=== PATIENT | male | born 1965 | race Caucasian/White ===

== ENCOUNTER 2020-07-12 20:08 | Emergency (ER) | payer BC, OTHER ==
[~2020-07-12] VITALS: Ht 185.5 cm; Wt 99.8 kg
[~2020-07-12 20:08] MED LIST: ALLP300T; ATOR80TA; CND32T; CPR500T PO; HCT25T; HYDR1TAB PO; METR500T PO; NF-ESOM40C
--- NOTE | 2020-07-12 21:08 | ED General ---
General Stated Complaint: RIGHT FLANK PAIN Source of Information: Patient Exam Limitations: No Limitations History of Present Illness Date Seen by Provider: July 12, 2020 Time Seen by Provider: 21:05 Initial Comments To ER with left flank pain onset 2 to 3 days ago. He has a history of kidney stones and is certain that is what this is. Right now the pain is only 5 out of 10 but occasionally gets very intense. This is similar to all of his previous kidney stones. He is set up to see his urologist Dr. Gonzalez on Tuesday. Has nausea and is unable to swallow the pain pill. Timing/Duration: 1-2 Days Severity: Moderate Associated Systoms: Nausea/Vomiting Allergies and Home Medications Allergies Coded Allergies: No Known Allergies (Unverified Allergy, Mild, 09/17/08) Home Medications Ciprofloxacin 500 Mg Tablet, 1 TAB PO BID Prescribed by: PRASHANT VILLEGAS on 09/17/08 1145 Hydrocodone Bit/Acetaminophen 1 Each Tablet, 1-2 EACH PO Q4HR PRN Prescribed by: PRASHANT VILLEGAS on 09/17/08 1145 Metronidazole 500 Mg Tablet, 1 EACH PO QID Prescribed by: PRASHANT VILLEGAS on 09/17/08 1145 Patient Home Medication List Home Medication List Reviewed: Yes Review of Systems Review of Systems Constitutional: see HPI EENTM: see HPI Respiratory: no symptoms reported Cardiovascular: no symptoms reported Genitourinary: no symptoms reported Musculoskeletal: no symptoms reported Skin: no symptoms reported Psychiatric/Neurological: No Symptoms Reported Hematologic/Lymphatic: No Symptoms Reported Immunological/Allergic: no symptoms reported Physical Exam Vital Signs Capillary Refill : Height, Weight, BMI Height: '" Weight: lbs. oz. kg; BMI Method: General Appearance: No Apparent Distress, WD/WN Eyes: Bilateral Eye Normal Inspection, Bilateral Eye PERRL, Bilateral Eye EOMI Neck: Full Range of Motion, Normal Inspection Respiratory: No Accessory Muscle Use, No Respiratory Distress Gastrointestinal: Normal Bowel Sounds, Non Tender, Soft Back: CVA Tenderness (L) Neurologic/Psychiatric: Alert, Oriented x3 Skin: Normal Color, Warm/Dry Progress/Results/Core Measures Suspected Sepsis SIRS Temperature: Pulse: Respiratory Rate: Laboratory Tests 07/12/20 21:12: White Blood Count 6.8 Blood Pressure / Mean: Laboratory Tests 07/12/20 21:12: Creatinine 1.29, Platelet Count 430H, Total Bilirubin 0.3 Results/Orders Lab Results Laboratory Tests Test 07/12/20 21:12 07/12/20 22:10 Range/Units White Blood Count 6.8 4.3-11.0 10^3/uL Red Blood Count 4.68 4.30-5.52 10^6/uL Hemoglobin 14.6 13.3-17.7 g/dL Hematocrit 44 40-54 % Mean Corpuscular Volume 94 80-99 fL Mean Corpuscular Hemoglobin 31 25-34 pg Mean Corpuscular Hemoglobin Concent 33 32-36 g/dL Red Cell Distribution Width 13.4 10.0-14.5 % Platelet Count 430 H 130-400 10^3/uL Mean Platelet Volume 9.7 9.0-12.2 fL Immature Granulocyte % (Auto) 0 % Neutrophils (%) (Auto) 58 42-75 % Lymphocytes (%) (Auto) 30 12-44 % Monocytes (%) (Auto) 8 0-12 % Eosinophils (%) (Auto) 4 0-10 % Basophils (%) (Auto) 0 0-10 % Neutrophils # (Auto) 4.0 1.8-7.8 10^3/uL Lymphocytes # (Auto) 2.0 1.0-4.0 10^3/uL Monocytes # (Auto) 0.5 0.0-1.0 10^3/uL Eosinophils # (Auto) 0.3 0.0-0.3 10^3/uL Basophils # (Auto) 0.0 0.0-0.1 10^3/uL Immature Granulocyte # (Auto) 0.0 0.0-0.1 10^3/uL Sodium Level 139 135-145 MMOL/L Potassium Level 4.8 3.6-5.0 MMOL/L Chloride Level 103 98-107 MMOL/L Carbon Dioxide Level 24 21-32 MMOL/L Anion Gap 12 5-14 MMOL/L Blood Urea Nitrogen 19 H 7-18 MG/DL Creatinine 1.29 0.60-1.30 MG/DL Estimat Glomerular Filtration Rate 58 BUN/Creatinine Ratio 15 Glucose Level 97 70-105 MG/DL Calcium Level 9.0 8.5-10.1 MG/DL Corrected Calcium 8.6 8.5-10.1 MG/DL Total Bilirubin 0.3 0.1-1.0 MG/DL Aspartate Amino Transf (AST/SGOT) 19 5-34 U/L Alanine Aminotransferase (ALT/SGPT) 18 0-55 U/L Alkaline Phosphatase 72 40-136 U/L Total Protein 7.2 6.4-8.2 GM/DL Albumin 4.5 3.2-4.5 GM/DL My Orders Orders - MYLENE GUERRERO APRN Ua Culture If Indicated (07/12/20 20:53) Cbc With Automated Diff (07/12/20 20:53) Comprehensive Metabolic Panel (07/12/20 20:53) Ed Iv/Invasive Line Start (07/12/20 20:53) Ketorolac Injection (Toradol Injection) (07/12/20 21:15) Ondansetron Injection (Zofran Injectio (07/12/20 21:15) Clonidine Tablet (Catapres Tablet) (07/12/20 21:15) Medications Given in ED Current Medications Medications Dose Ordered Sig/Breann Route Start Time Stop Time Status Last Admin Dose Admin Clonidine HCl 0.1 mg ONCE ONCE PO 07/12/20 21:15 07/12/20 21:16 DC 07/12/20 21:29 0.1 MG Ketorolac Tromethamine 15 mg ONCE ONCE IVP 07/12/20 21:15 07/12/20 21:16 DC 07/12/20 21:29 15 MG Ondansetron HCl 4 mg ONCE ONCE IVP 07/12/20 21:15 07/12/20 21:16 DC 07/12/20 21:29 4 MG Vital Signs/I&O Capillary Refill : Departure Communication (Admissions) I did recommend a CT scan to determine the size and location of stone. He just darted a new job at [employer] and is concerned about insurance not covering this. He states that he is scheduled to have 1 first of next week anyway. He would like to forego that tonight. As such we will do start an IV and give him some pain control and fluids. 2217- patient states that the nausea and vomiting is more an effect of the pill itself. He tolerates the liquid pain medication much better. Impression Primary Impression: Left ureteral stone Disposition: HOME, SELF-CARE Condition: Improved Departure-Patient Inst. Decision time for Depature: 22:17 Referrals: TAL RIVERA MD (PCP/Family) Primary Care Physician Patient Instructions: Kidney Stones in Adults Scripts Cefuroxime Axetil (Cefuroxime) 250 Mg Tablet 250 MG PO BID, #10 TAB Prov: MYLENE GUERRERO APRN 07/12/20 Hydrocodone/Acetaminophen (Hydrocodone-Acetamn 7.5-325/15) 118 Ml Solution 15 ML PO Q6H PRN for PAIN-SEVERE (8-10), #120 ML Prov: MYLENE GUERRERO APRN 07/12/20 MYLENE GUERRERO APRN July 12, 2020 21:08
[2020-07-12] MEDS ORDERED: cloNIDine 0.1 MG (CATAPRES) TAB PO ONE (21:15)
[2020-07-12] MEDS ORDERED: ONDANSETRON 4 MG/2 ML (SDV) Z0FRAN IVP ONE (21:15)
[2020-07-12] MEDS ORDERED: KETOROLAC 30 MG/ML VIAL IVP ONE (21:15)
[2020-07-12 21:19] LABS: BASOPHILS % (AUTO) 0 % (0-10); EOSINOPHILS # (AUTO) 0.3 10^3/uL (0.0-0.3); EOSINOPHILS % (AUTO) 4 % (0-10); HEMATOCRIT 44 % (40-54); HEMOGLOBIN 14.6 g/dL (13.3-17.7); LYMPHOCYTES % (AUTO) 30 % (12-44); MEAN CORPUSCULAR HEMOGLOBIN 31 pg (25-34); MEAN CORPUSCULAR HGB CONC 33 g/dL (32-36); MEAN CORPUSCULAR VOLUME 94 fL (80-99); MEAN PLATELET VOLUME 9.7 fL (9.0-12.2); MONOCYTES # (AUTO) 0.5 10^3/uL (0.0-1.0); MONOCYTES % (AUTO) 8 % (0-12); NEUTROPHILS % (AUTO) 58 % (42-75); PLATELET COUNT 430 10^3/uL (130-400); WHITE BLOOD COUNT 6.8 10^3/uL (4.3-11.0)
[2020-07-12 21:27] LABS: ALBUMIN 4.5 GM/DL (3.2-4.5); POTASSIUM 4.8 MMOL/L (3.6-5.0)
[2020-07-12 21:29] LABS: TOTAL PROTEIN 7.2 GM/DL (6.4-8.2)
[2020-07-12 21:31] LABS: BILIRUBIN,TOTAL 0.3 MG/DL (0.1-1.0)
[2020-07-12 21:33] LABS: CREATININE SERUM 1.29 MG/DL (0.60-1.30)
[2020-07-12 22:15] LABS: BILIRUBIN,URINE NEGATIVE (NEGATIVE); CLARITY,URINE CLEAR; COLOR,URINE YELLOW; GLUCOSE, URINE (UA) NEGATIVE (NEGATIVE); KETONES,URINE NEGATIVE (NEGATIVE); LEUKOCYTE ESTERASE ,URINE NEGATIVE (NEGATIVE); NITRITE,URINE NEGATIVE (NEGATIVE); PH,URINE 5.5 (5-9); PROTEIN,URINE NEGATIVE (NEGATIVE)
[2020-07-12] MEDS ORDERED: morphine INJ 10 MG/ML 1ML (SYR OR VIAL) IVP STA (22:17)
[2020-07-12] MEDS ORDERED: HYDR118S10 PO (22:19)
[2020-07-12] MEDS ORDERED: CEFU250T80 PO (22:19)
[2020-07-12 22:21] LABS: BACTERIA,URINE NEGATIVE /HPF; SQUAMOUS EPITHELIAL CELL,UR RARE /HPF
[2020-07-12 22:36] VITALS: BP 205/139
== END 2020-07-12 22:36 | disposition home or self-care (01) ==
LOC: EDUNIT# 20:08 → ER 20:12
DX: N20.1 Calculus of ureter (principal)
CPT/HCPCS: 36415; 80053; 81000; 85025

== ENCOUNTER 2020-11-18 14:15 | Outpatient (RCR) | payer BC, OTHER ==
[~2020-11-18 14:15] MED LIST changes: +CEFU250T80 PO; +HYDR118S10 PO
== END 2020-11-18 15:00 | disposition home or self-care (01) ==
PROVIDERS: ATTEND Internal Medicine
DX: G11.9 Hereditary ataxia, unspecified (principal); R42 Dizziness and giddiness; G43.809 Other migraine, not intractable, without status migrainosus; I10 Essential (primary) hypertension; Z79.899 Other long term (current) drug therapy; Z79.891 Long term (current) use of opiate analgesic; Z87.828 Personal history of other (healed) physical injury and trauma

== ENCOUNTER 2020-12-15 14:52 | Outpatient (RCR) | payer BC | END 2021-02-19 | disposition home or self-care (01) | PROVIDERS: ATTEND Nurse Practitioner Family | DX: S46.012D Strain of muscle(s) and tendon(s) of the rotator cuff of left shoulder, subsequent encounter (principal); X58.XXXD Exposure to other specified factors, subsequent encounter ==

== ENCOUNTER → 2020-12-31 | Outpatient (CLI) | payer BC ==
[2020-12-31 14:21] LABS: BASOPHILS % (AUTO) 0 % (0-10); EOSINOPHILS # (AUTO) 0.1 10^3/uL (0.0-0.3); EOSINOPHILS % (AUTO) 1 % (0-10); HEMATOCRIT 44 % (40-54); HEMOGLOBIN 15.2 g/dL (13.3-17.7); LYMPHOCYTES # (AUTO) 1.7 10^3/uL (1.0-4.0); LYMPHOCYTES % (AUTO) 16 % (12-44); MEAN CORPUSCULAR HEMOGLOBIN 32 pg (25-34); MEAN CORPUSCULAR HGB CONC 35 g/dL (32-36); MEAN CORPUSCULAR VOLUME 92 fL (80-99); MEAN PLATELET VOLUME 9.7 fL (9.0-12.2); MONOCYTES # (AUTO) 0.7 10^3/uL (0.0-1.0); MONOCYTES % (AUTO) 6 % (0-12); NEUTROPHILS # (AUTO) 8.4 10^3/uL (1.8-7.8); NEUTROPHILS % (AUTO) 77 % (42-75); PLATELET COUNT 493 10^3/uL (130-400); WHITE BLOOD COUNT 10.9 10^3/uL (4.3-11.0)
[2020-12-31 14:39] LABS: CALCIUM 9.5 MG/DL (8.5-10.1); CREATININE SERUM 1.19 MG/DL (0.60-1.30); POTASSIUM 3.5 MMOL/L (3.6-5.0)
== END ==
LOC: CARD 14:06
PROVIDERS: ATTEND Nurse Practitioner Family
DX: I11.9 Hypertensive heart disease without heart failure (principal); I20.9 Angina pectoris, unspecified; R00.0 Tachycardia, unspecified
CPT/HCPCS: 36415; 80048; 85025; 93005

== ENCOUNTER 2021-06-13 13:44 | Emergency (ER) | payer BC ==
[~2021-06-13] VITALS: Ht 185.5 cm; Wt 108.8 kg
[~2021-06-13 13:44] MED LIST changes: -ALLP300T; +ALLP300T PO; -ATOR80TA; +ATOR80TA PO
[2021-06-13] MEDS ORDERED: NS IV 1000 ML 1,000 ML IV SCH (14:15)
[2021-06-13] MEDS ORDERED: ONDANSETRON 4 MG/2 ML (SDV) Z0FRAN IVP ONE (14:15)
[2021-06-13 14:27] LABS: BASOPHILS % (AUTO) 0 % (0-10); EOSINOPHILS # (AUTO) 0.2 10^3/uL (0.0-0.3); EOSINOPHILS % (AUTO) 2 % (0-10); HEMATOCRIT 45 % (40-54); HEMOGLOBIN 15.5 g/dL (13.3-17.7); LYMPHOCYTES % (AUTO) 10 % (12-44); MEAN CORPUSCULAR HEMOGLOBIN 32 pg (25-34); MEAN CORPUSCULAR HGB CONC 34 g/dL (32-36); MEAN CORPUSCULAR VOLUME 93 fL (80-99); MEAN PLATELET VOLUME 9.5 fL (9.0-12.2); MONOCYTES # (AUTO) 0.7 10^3/uL (0.0-1.0); MONOCYTES % (AUTO) 7 % (0-12); NEUTROPHILS # (AUTO) 8.3 10^3/uL (1.8-7.8); NEUTROPHILS % (AUTO) 81 % (42-75); PLATELET COUNT 420 10^3/uL (130-400); WHITE BLOOD COUNT 10.2 10^3/uL (4.3-11.0)
[2021-06-13 14:37] LABS: POTASSIUM 4.2 MMOL/L (3.6-5.0)
[2021-06-13 14:38] LABS: CALCIUM 8.8 MG/DL (8.5-10.1)
[2021-06-13 14:39] LABS: TOTAL PROTEIN 6.9 GM/DL (6.4-8.2)
[2021-06-13 14:41] LABS: BILIRUBIN,TOTAL 0.8 MG/DL (0.1-1.0)
[2021-06-13 14:43] LABS: CREATININE SERUM 1.22 MG/DL (0.60-1.30)
--- NOTE | 2021-06-13 14:45 | ED GI ---
General Chief Complaint: Abdominal/GI Problems Stated Complaint: STOMACH PAIN/DIARRHEA/VOMITING X 10 DAYS Nursing Triage Note: PT AMB TO RM 10 WITH COMPLAINT OF N/V/D AND ABD PAIN FOR TEN DAYS. CALLED PCP AND WAS PRESCRIBED FLAGYL. (AURORA CEVALLOS) History of Present Illness Date Seen by Provider: Jun 13, 2021 Time Seen by Provider: 14:00 Initial Comments 56-year-old male presents for a 10-day history of nausea, vomiting, and diarrhea. Patient reports up to 10 episodes of vomiting and/or diarrhea daily. He has been having persistent vomiting today since 0900. He was evaluated at urgent care yesterday and given 2 bags of IV fluid. He did speak to Dr. Calix by phone and was started on Flagyl on 06/11/2021. 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 He will be seen in July of this year at [facility] for the ataxia. Hx of hypertension, hasn't been taking his medications because of nausea. Timing/Duration: 1 Week Severity/Quality: Moderate Location: Generalized Abdomen Radiation: No Radiation Associated Symptoms: No Back Pain, No Chest Pain, No Diaphoresis, No Fever/Chills, No Fatigue, No Heartburn; Nausea/Vomiting; No Swelling/Mass in Abdomen (AURORA CEVALLOS) Allergies and Home Medications Allergies Coded Allergies: NKANo Known Allergies (Unverified Allergy, Mild, 09/17/08) Patient Home Medication List Home Medication List Reviewed: Yes (AURORA CEVALLOS) Allopurinol (Zyloprim) 300 Mg Tablet, (Reported) Entered as Reported by: DOLORES GUTIÉRREZ on 09/17/08953 Atorvastatin Calcium (Lipitor 80MG) 80 Mg Tablet, (Reported) Entered as Reported by: DOLORES GUTIÉRREZ on 09/17/08953 Candesartan Cilexetil (Atacand) 32 Mg Tablet, (Reported) Entered as Reported by: DOLORES GUTIÉRREZ on 09/17/08953 Cefuroxime Axetil (Cefuroxime) 250 Mg Tablet, 250 MG PO BID Prescribed by: MYLENE GUERRERO on 07/12/20 7733 Ciprofloxacin (Cipro) 500 Mg Tablet, 1 TAB PO BID Prescribed by: PRASHANT VILLEGAS on 09/17/08 1145 Diphenoxylate HCl/Atropine (Lomotil 2.5-0.025 mg Tablet) 1 Each Tablet, 1 EACH PO Q6H PRN for DIARRHEA Prescribed by: AURORA CEVALLOS on 06/13/21 170 Esomeprazole Mag Trihydrate (Nexium) 40 Mg Capsule., (Reported) Entered as Reported by: DOLORES GUTIÉRREZ on 09/17/08954 Hydrochlorothiazide (Hctz) 25 Mg Tab, (Reported) Entered as Reported by: DOLORES GUTIÉRREZ on 09/17/08954 Hydrocodone Bit/Acetaminophen (Vicodin 5-500 Tablet) 1 Each Tablet, 1-2 EACH PO Q4HR PRN Prescribed by: PRASHANT VILLEGAS on 09/17/08 114 Hydrocodone/Acetaminophen (Hydrocodone-Acetamn 7.5-325/15) 118 Ml Solution, 15 ML PO Q6H PRN for PAIN-SEVERE (8-10) Prescribed by: MYLENE GUERRERO on 07/12/20 222 Hyoscyamine Sulfate (Levsin-Sl) 0.125 Mg Tab.subl, 0.125 MG SL Q6H PRN for SPASMS Prescribed by: AURORA CEVALLOS on 06/13/21 170 Metronidazole (Metronidazole) 500 Mg Tablet, 1 EACH PO QID Prescribed by: PRASHANT VILLEGAS on 09/17/08 1145 Review of Systems Review of Systems Constitutional: no symptoms reported, see HPI Gastrointestinal: See HPI, Abdominal Pain (Cramping), Diarrhea, Nausea, Poor Appetite, Poor Fluid Intake; Denies Rectal Bleeding; Vomiting (AURORA CEVALLOS) All Other Systems Reviewed Negative Unless Noted: Yes (AURORA CEVALLOS) Past Rujtjfy-Sucsut-Aslvhb Hx Patient Social History Tobacco Use?: No Use of E-Cig and/or Vaping dev: No Substance use?: No Alcohol Use?: Yes Alcohol Frequency: Once in a while Pt feels they are or have been: No (AURORA CEVALLOS) Immunizations Up To Date Influenza Vaccine Up-to-Date: No; Not Current First/Initial COVID19 Vaccinat: 2020 Second COVID19 Vaccination Roberto: 2020 (AURORA CEVALLOS) Seasonal Allergies Seasonal Allergies: No (AURORA CEVALLOS) Past Medical History Surgeries: Yes (ureter stent+removal) Respiratory: No Cardiac: Yes High Cholesterol, Hypertension Neurological: Yes (Ataxia--follows with at ) Genitourinary: Yes Kidney Stones Gastrointestinal: No Musculoskeletal: No Endocrine: No HEENT: No Cancer: No Psychosocial: No Integumentary: No Blood Disorders: No (AURORA CEVALLOS) Family Medical History Reviewed Nursing Family Hx (AURORA CEVALLOS) Physical Exam Vital Signs Vital Signs - First Documented 06/13/21 14:00 Pulse 112 Resp 20 B/P (MAP) 191/97 (128) Pulse Ox 98 O2 Delivery Room Air (SCARLETT STEPHENSON MD) Vital Signs Capillary Refill : Less Than 3 Seconds (AURORA CEVALLOS) Height/Weight/BMI Height: '" Weight: lbs. oz. kg; 31.00 BMI Method: General Appearance: WD/WN, no apparent distress HEENT: PERRL/EOMI, normal ENT inspection, TMs normal, pharynx normal, other (Oral mucosa pink and moist) Neck: non-tender, full range of motion, supple, normal inspection Respiratory: chest non-tender, lungs clear, normal breath sounds Cardiovascular: normal peripheral pulses, regular rate, rhythm Gastrointestinal: normal bowel sounds, soft, distended; No guarding, No rebound; tenderness (Generalized) Extremities: normal range of motion, non-tender, normal inspection, normal capillary refill Back: normal inspection, no CVA tenderness Neurologic/Psychiatric: no motor/sensory deficits, alert, normal mood/affect, oriented x 3 Skin: normal color, warm/dry (AURORA CEVALLOS) Progress/Results/Core Measures Results/Orders Lab Results Laboratory Tests Test 06/13/21 14:21 06/13/21 15:30 Range/Units White Blood Count 10.2 4.3-11.0 10^3/uL Red Blood Count 4.85 4.30-5.52 10^6/uL Hemoglobin 15.5 13.3-17.7 g/dL Hematocrit 45 40-54 % Mean Corpuscular Volume 93 80-99 fL Mean Corpuscular Hemoglobin 32 25-34 pg Mean Corpuscular Hemoglobin Concent 34 32-36 g/dL Red Cell Distribution Width 13.0 10.0-14.5 % Platelet Count 420 H 130-400 10^3/uL Mean Platelet Volume 9.5 9.0-12.2 fL Immature Granulocyte % (Auto) 0 % Neutrophils (%) (Auto) 81 H 42-75 % Lymphocytes (%) (Auto) 10 L 12-44 % Monocytes (%) (Auto) 7 0-12 % Eosinophils (%) (Auto) 2 0-10 % Basophils (%) (Auto) 0 0-10 % Neutrophils # (Auto) 8.3 H 1.8-7.8 10^3/uL Lymphocytes # (Auto) 1.0 1.0-4.0 10^3/uL Monocytes # (Auto) 0.7 0.0-1.0 10^3/uL Eosinophils # (Auto) 0.2 0.0-0.3 10^3/uL Basophils # (Auto) 0.0 0.0-0.1 10^3/uL Immature Granulocyte # (Auto) 0.0 0.0-0.1 10^3/uL Sodium Level 140 135-145 MMOL/L Potassium Level 4.2 3.6-5.0 MMOL/L Chloride Level 104 98-107 MMOL/L Carbon Dioxide Level 19 L 21-32 MMOL/L Anion Gap 17 H 5-14 MMOL/L Blood Urea Nitrogen 10 7-18 MG/DL Creatinine 1.22 0.60-1.30 MG/DL Estimat Glomerular Filtration Rate 70 BUN/Creatinine Ratio 8 Glucose Level 105 70-105 MG/DL Calcium Level 8.8 8.5-10.1 MG/DL Corrected Calcium 8.8 8.5-10.1 MG/DL Total Bilirubin 0.8 0.1-1.0 MG/DL Aspartate Amino Transf (AST/SGOT) 23 5-34 U/L Alanine Aminotransferase (ALT/SGPT) 18 0-55 U/L Alkaline Phosphatase 64 40-136 U/L Total Protein 6.9 6.4-8.2 GM/DL Albumin 4.0 3.2-4.5 GM/DL Amylase Level 78 25-125 U/L Lipase 134 H 8-78 U/L Urine Color YELLOW Urine Clarity CLEAR Urine pH 6.0 5-9 Urine Specific [place] 1.020 1.016-1.022 Urine Protein NEGATIVE NEGATIVE Urine Glucose (UA) NEGATIVE NEGATIVE Urine Ketones TRACE H NEGATIVE Urine Nitrite NEGATIVE NEGATIVE Urine Bilirubin NEGATIVE NEGATIVE Urine Urobilinogen 0.2 < = 1.0 MG/DL Urine Leukocyte Esterase NEGATIVE NEGATIVE Urine RBC (Auto) NEGATIVE NEGATIVE Urine RBC NONE /HPF Urine WBC NONE /HPF Urine Squamous Epithelial Cells NONE /HPF Urine Renal Epithelial Cells NONE /HPF Urine Crystals NONE /LPF Urine Bacteria NEGATIVE /HPF Urine Casts NONE /LPF Urine Mucus LARGE H /LPF Urine Culture Indicated NO Urine Opiates Screen NEGATIVE NEGATIVE Urine Oxycodone Screen NEGATIVE NEGATIVE Urine Methadone Screen NEGATIVE NEGATIVE Urine Propoxyphene Screen NEGATIVE NEGATIVE Urine Barbiturates Screen NEGATIVE NEGATIVE Ur Tricyclic Antidepressants Screen NEGATIVE NEGATIVE Urine Phencyclidine Screen NEGATIVE NEGATIVE Urine Amphetamines Screen NEGATIVE NEGATIVE Urine Methamphetamines Screen NEGATIVE NEGATIVE Urine Benzodiazepines Screen POSITIVE H NEGATIVE Urine Cocaine Screen NEGATIVE NEGATIVE Urine Cannabinoids Screen NEGATIVE NEGATIVE (SCARLETT STEPHENSON MD) Medications Given in ED Current Medications Medications Dose Ordered Sig/Breann Route Start Time Stop Time Status Last Admin Dose Admin Hyoscyamine Sulfate 0.125 mg ONCE ONCE SL 06/13/21 15:45 06/13/21 15:46 DC 06/13/21 15:57 0.125 MG Lactated Ringer's 1,000 ml @ 0 mls/hr Q0M ONCE IV 06/13/21 15:15 06/13/21 15:17 DC 06/13/21 15:58 0 MLS/HR Ondansetron HCl 8 mg ONCE ONCE IVP 06/13/21 14:15 06/13/21 14:16 DC 06/13/21 14:24 8 MG (SCARLETT STEPHENSON MD) Vital Signs/I&O 06/13/21 06/13/21 14:00 17:36 Pulse 112 87 Resp 20 16 B/P (MAP) 191/97 (128) 183/110 Pulse Ox 98 98 O2 Delivery Room Air Room Air (SCARLETT STEPHENSON MD) Blood Pressure Mean: 128 Progress Progress Note : Time: 14:00 Progress Note Patient seen and evaluated, will obtain labs, CT abdomen and pelvis. Zofran 8 mg IV and LR 1 L. 1500 patient has had no vomiting or diarrhea since admission. He is taking ice chips now with no complaints. Patient also concerned about his blood pressure which is quite labile, 200/100-160/90s. Patient reports that his blood pressure has been high for some time and he has not been able to take his medication or has vomited after taking it. 1600 patient continues to take ice chips and water, he has had no vomiting or diarrhea since presentation here. He continues to complain of abdominal cramping despite using Levsin. Hydralazine 10 mg IV for hypertension. 1630 fentanyl 50 mcg IV for pain. Additional liter of LR provided. Discussed patient's home medications, he receives approximately 180 tablets of hydrocodone every month despite having a negative drug screen for opiates. He reports he has not taken them for several days as he only uses them when he is having a migraine. 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 He also takes tramadol regularly. B/P 160s/80s. 1700 patient denies any improvement in symptoms after receiving the fentanyl. He does request morphine as this is worked in the past. His subjective and objective findings are not consistent with the level of abdominal pain he continues to report. With normal labs and CT imaging, no vomiting or diarrhea today, it was felt this could be managed outpatient with anti-spasmodic and he has zofran at home, which he has not taken for nausea, Lomotil for diarrhea. Patient agreeable with managing at home. He was stressed to continue on a clear liquid diet only. Discharge instructions and return precautions reviewed with him. (AURORA CEVALLOS) Diagnostic Imaging Diagonstic Imaging: CT Plain Films/CT/US/NM/MRI: abdomen, pelvis Comments NAME: BRADLEY GUO [facility] REC#: [id number] PT STATUS: REG ER : 1965 PHYSICIAN: AURORA CEVALLOS ADMIT DATE: 06/13/21/ER Draft Date of Exam:06/13/21 CT ABDOMEN/PELVIS WO PROCEDURE: CT abdomen and pelvis without contrast. TECHNIQUE: Multiple contiguous axial images were obtained through the abdomen and pelvis without the use of intravenous contrast. Auto Exposure Controls were utilized during the CT exam to meet ALARA standards for radiation dose reduction. Indication: Abdominal pain with nausea, vomiting and diarrhea for 10 days. Comparison: 09/17/2008. Discussion: Lung bases are unremarkable. Normal heart size. No pleural or pericardial fluid. Elevated right hemidiaphragm. Gallbladder is mostly contracted. The liver, stomach, spleen, and adrenal glands are unremarkable. There may be some early inflammatory changes along the pancreatic head which could be seen with early pancreatitis. No renal stone or hydronephrosis. Diverticulosis is noted with no secondary evidence for diverticulitis. Bladder and prostate are unremarkable. Fat-containing bilateral inguinal hernias are noted. The appendix is normal. No ascites or adenopathy. No acute osseous abnormality. Impression: 1. There is mild induration along the pancreatic head suggesting early changes of pancreatitis. Recommend clinical correlation. Dictated on workstation # [id number] Dict: 06/13/21 1441 Trans: 06/13/21 1447 CV [id number] Interpreted by: STACY LYLES MD Electronically signed by: Reviewed: Reviewed by Me (AURORA CEVALLOS) Departure Impression Primary Impression: Abdominal pain Qualified Codes: R10.84 - Generalized abdominal pain Additional Impressions: Nausea and vomiting Qualified Codes: R11.2 - Nausea with vomiting, unspecified Diarrhea Qualified Codes: R19.7 - Diarrhea, unspecified Diverticulosis large intestine w/o perforation or abscess w/bleeding Disposition: 01 HOME, SELF-CARE Condition: Improved Departure-Patient Inst. Decision time for Depature: 16:00 (AURORA CEVALLOS) Referrals: TAL CALIX MD (PCP/Family) Primary Care Physician Patient Instructions: Diarrhea and Travelers' Diarrhea, Adult (DC), Severe Abdominal Pain, Adult (DC) Add. Discharge Instructions: Adhere to a strict clear liquid diet for the next 6 to 8 hours then bland diet as tolerated. Follow-up with your primary care provider if symptoms are not improving or worsen. Use the Levsin as prescribed for abdominal cramping. Use the Zofran you have at home for nausea and vomiting. Take all prescribed medicine by Dr. Calix as scheduled. Use the Lomotil for diarrhea. Collect a stool sample and bring in for outpatient testing. Return to the emergency department for new, urgent healthcare problems. All discharge instructions reviewed with patient and/or family. Voiced understanding. Scripts Hyoscyamine Sulfate (Levsin-Sl) 0.125 Mg Tab.subl 0.125 MG SL Q6H PRN for SPASMS, #20 TAB 0 Refills Prov: AURORA CEVALLOS 06/13/21 Diphenoxylate HCl/Atropine (Lomotil 2.5-0.025 mg Tablet) 1 Each Tablet 1 EACH PO Q6H PRN for DIARRHEA, #20 TAB 0 Refills Prov: AURORA CEVALLOS 06/13/21 ATTENDING PHYSICIAN NOTE: I was physically present as attending physician in the emergency department during the care of this patient, but I was not directly involved in the decision making or delivery of care for this patient. (SCARLETT STEPHENSON MD) Copy Copies To 1: TAL CALIX MD, AMY ARNP Jun 13, 2021 14:45 SCARLETT STEPHENSON MD Jun 13, 2021 19:11
--- NOTE | 2021-06-13 14:48 | Diagnostic Imaging Report ---
PROCEDURE: CT abdomen and pelvis without contrast. TECHNIQUE: Multiple contiguous axial images were obtained through the abdomen and pelvis without the use of intravenous contrast. Auto Exposure Controls were utilized during the CT exam to meet ALARA standards for radiation dose reduction. Indication: Abdominal pain with nausea, vomiting and diarrhea for 10 days. Comparison: 09/17/2008. Discussion: Lung bases are unremarkable. Normal heart size. No pleural or pericardial fluid. Elevated right hemidiaphragm. Gallbladder is mostly contracted. The liver, stomach, spleen, and adrenal glands are unremarkable. There may be some early inflammatory changes along the pancreatic head which could be seen with early pancreatitis. No renal stone or hydronephrosis. Diverticulosis is noted with no secondary evidence for diverticulitis. Bladder and prostate are unremarkable. Fat-containing bilateral inguinal hernias are noted. The appendix is normal. No ascites or adenopathy. No acute osseous abnormality. Impression: 1. There is mild induration along the pancreatic head suggesting early changes of pancreatitis. Recommend clinical correlation. Dictated by: Dictated on workstation # [id number]
[2021-06-13] MEDS ORDERED: LACTATED RINGERS 1,000 ML IV ONE (15:15)
[2021-06-13] MEDS ORDERED: PANTOPRAZOLE 40 MG (PROTONIX) VIAL IV STA (15:29)
[2021-06-13 15:36] LABS: BILIRUBIN,URINE NEGATIVE (NEGATIVE); CLARITY,URINE CLEAR; COLOR,URINE YELLOW; GLUCOSE, URINE (UA) NEGATIVE (NEGATIVE); KETONES,URINE TRACE (NEGATIVE); LEUKOCYTE ESTERASE ,URINE NEGATIVE (NEGATIVE); NITRITE,URINE NEGATIVE (NEGATIVE); PROTEIN,URINE NEGATIVE (NEGATIVE)
[2021-06-13 15:45] LABS: BACTERIA,URINE NEGATIVE /HPF
[2021-06-13] MEDS ORDERED: HYOSCYAMINE 0.125 MG (LEVSIN) TAB SL ONE (15:45)
[2021-06-13] MEDS ORDERED: hydrALAZINE (APESOLINE) 20 MG/ML VIAL IV STA (16:24)
[2021-06-13] MEDS ORDERED: fentaNYL INJ 100 MCG/2 ML AMP IVP STA (16:51)
[2021-06-13] MEDS ORDERED: DIPH1TAB PO (17:01)
[2021-06-13] MEDS ORDERED: HYOS0.1283 SL (17:01)
[2021-06-13 17:13] LABS: AMPHETAMINE SCREEN, URINE NEGATIVE (NEGATIVE); BARBITURATE SCREEN URINE NEGATIVE (NEGATIVE); BENZODIAZEPINES SCREEN URINE POSITIVE (NEGATIVE); CANNABINOID SCREEN, URINE NEGATIVE (NEGATIVE); COCAINE SCREEN URINE NEGATIVE (NEGATIVE); METHADONE STAT NEGATIVE (NEGATIVE); METHAMPHETAMINE SCREEN URINE S NEGATIVE (NEGATIVE); OPIATE SCREEN URINE NEGATIVE (NEGATIVE); OXYCODONE STAT NEGATIVE (NEGATIVE); PROPOXYPHENE STAT NEGATIVE (NEGATIVE); TRICYCLIC ANTIDEPRESSANTS SCRE NEGATIVE (NEGATIVE)
[2021-06-13 17:36] VITALS: BP 183/110
[2021-06-14] MEDS ORDERED: OMEP20CA18 PO (05:50)
[2021-06-14] MEDS ORDERED: TRAM50TA3 PO (05:50)
[2021-06-14] MEDS ORDERED: PROC10TA10 PO (05:50)
[2021-06-14] MEDS ORDERED: CHLO25TA22 PO (05:50)
[2021-06-14] MEDS ORDERED: SCOP1PAT10 TD (05:50)
[2021-06-14] MEDS ORDERED: DIAZ5TAB49 PO (05:50)
[2021-06-14] MEDS ORDERED: RIZA10TA94 PO (05:50)
[2021-06-14] MEDS ORDERED: PROP60CA PO (05:50)
[2021-06-14] MEDS ORDERED: ZOLP10TA PO (05:50)
[2021-06-14] MEDS ORDERED: TIZA-186 PO (05:50)
[2021-06-14] MEDS ORDERED: HYDR-3820 PO (05:50)
[2021-06-14] MEDS ORDERED: INDO50CA82 PO (05:50)
[2021-06-14] MEDS ORDERED: UBRO100T PO (05:50)
[2021-06-14] MEDS ORDERED: FEXO1TAB97 PO (05:50)
[2021-06-14] MEDS ORDERED: BENA-3 PO (05:50)
[2021-06-14] MEDS ORDERED: ONDA4TAB11 PO (14:32)
== END 2021-06-13 17:44 | disposition home or self-care (01) ==
LOC: EDUNIT# 13:44 → ER 13:46
DX: K57.31 Diverticulosis of large intestine without perforation or abscess with bleeding (principal)
CPT/HCPCS: 36415; 74176; 80053; 80306; 81000; 82150; 83690; 85025

== ENCOUNTER 2021-06-14 01:10 | Observation (INO) | payer BC ==
[~2021-06-14] VITALS: Ht 185 cm; Wt 114.6 kg
[~2021-06-14 01:10] MED LIST changes: +DIPH1TAB PO; +HYOS0.1283 SL
[2021-06-14] MEDS ORDERED: NS IV 1000 ML 1,000 ML IV SCH (01:30)
[2021-06-14] MEDS ORDERED: ONDANSETRON 4 MG/2 ML (SDV) Z0FRAN IVP ONE (01:30)
[2021-06-14 01:33] LABS: BASOPHILS % (AUTO) 0 % (0-10); EOSINOPHILS # (AUTO) 0.2 10^3/uL (0.0-0.3); EOSINOPHILS % (AUTO) 2 % (0-10); HEMATOCRIT 42 % (40-54); HEMOGLOBIN 14.5 g/dL (13.3-17.7); LYMPHOCYTES # (AUTO) 1.5 10^3/uL (1.0-4.0); LYMPHOCYTES % (AUTO) 17 % (12-44); MEAN CORPUSCULAR HEMOGLOBIN 32 pg (25-34); MEAN CORPUSCULAR HGB CONC 34 g/dL (32-36); MEAN CORPUSCULAR VOLUME 92 fL (80-99); MEAN PLATELET VOLUME 9.4 fL (9.0-12.2); MONOCYTES % (AUTO) 11 % (0-12); NEUTROPHILS # (AUTO) 6.2 10^3/uL (1.8-7.8); NEUTROPHILS % (AUTO) 70 % (42-75); PLATELET COUNT 416 10^3/uL (130-400); WHITE BLOOD COUNT 8.9 10^3/uL (4.3-11.0)
--- NOTE | 2021-06-14 01:33 | ED GI ---
General Chief Complaint: Abdominal/GI Problems Stated Complaint: BELLY ACHE, N/V Nursing Triage Note: patient sceen here in ER 06/13/2021 vomitting and abdominal pain. patient back for complaint of "dark blood" vomit. states abdominal pain Source of Information: Patient Exam Limitations: No Limitations History of Present Illness Date Seen by Provider: Jun 14, 2021 Time Seen by Provider: 01:15 Initial Comments Patient presents ER by private conveyance with chief complaint he was just out here to the ER earlier today given some Zofran for his 10 days of nausea vomiti ng diarrhea went home took 2 tablets of Zofran at 7 states he ate dinner at 8 and immediately vomited back up. He noted some black substance in his emesis which she has seem to be blood. He does not have a history of esophageal varices. He has a history of ataxia, hypertension. He states his belly hurts down low bilateral. He typically takes hydrocodone for his headaches but has not been able to keep that or any of his migraine medicines down because of the nausea and vomiting. Patient was evaluated urgent care yesterday and given 2 bags of fluid. He was started on Flagyl by Dr. Calix over the phone 2 days ago. He has a history of diverticulitis. He also has a history of persistent vertigo with nausea and wears a scopolamine patch. His blood pressures have been running high because is not able to tolerate keeping his medicines down. Patient did have a CT of his abdomen pelvis noting early pancreatitis. Allergies and Home Medications Allergies Coded Allergies: NKANo Known Allergies (Unverified Allergy, Mild, 09/17/08) Patient Home Medication List Home Medication List Reviewed: Yes Allopurinol (Zyloprim) 300 Mg Tablet, 300 MG PO DAILY, (Reported) Entered as Reported by: DOLORES GUTIÉRREZ on 09/17/08953 Last Action: Edited Atorvastatin Calcium (Lipitor 80MG) 80 Mg Tablet, 80 MG PO HS, (Reported) Entered as Reported by: DOLORES GUTIÉRREZ on 09/17/08953 Last Action: Edited Benazepril HCl (Benazepril HCl) 20 Mg Tablet, 20 MG PO DAILY, (Reported) Entered as Reported by: NICK HENDRICKS on 06/14/21 0550 Last Action: New Order Candesartan Cilexetil (Atacand) 32 Mg Tablet, (Reported) Entered as Reported by: DOLORES GUTIÉRREZ on 09/17/08953 Cefuroxime Axetil (Cefuroxime) 250 Mg Tablet, 250 MG PO BID Prescribed by: MYLENE GUERRERO on 07/12/202218 Chlorthalidone (Chlorthalidone) 25 Mg Tablet, 25 MG PO DAILY, (Reported) Entered as Reported by: NICK HENDRICKS on 06/14/21549 Last Action: New Order Ciprofloxacin (Cipro) 500 Mg Tablet, 1 TAB PO BID Prescribed by: PRASHANT VILLEGAS on 09/17/081144 Diazepam (Diazepam) 5 Mg Tablet, 5 MG PO DAILY PRN for ANXIETY, (Reported) Entered as Reported by: NICK HENDRICKS on 06/14/21549 Last Action: New Order Diphenoxylate HCl/Atropine (Lomotil 2.5-0.025 mg Tablet) 1 Each Tablet, 1 EACH PO Q6H PRN for DIARRHEA Prescribed by: AURORA CEVALLOS on 06/13/21 170 Esomeprazole Mag Trihydrate (Nexium) 40 Mg Capsule., (Reported) Entered as Reported by: DOLORES GUTIÉRREZ on 09/17/08954 Fexofenadine/Pseudoephedrine (Fexofenadine-Pse ER 180-240 Tb) 1 Each Tab.er.24h, 1 EACH PO DAILY, (Reported) Entered as Reported by: NICK HENDRICKS on 06/14/2134 Last Action: New Order Hydrochlorothiazide (Hctz) 25 Mg Tab, (Reported) Entered as Reported by: DOLORES GUTIÉRREZ on 09/17/08954 Hydrocodone Bit/Acetaminophen (Vicodin 5-500 Tablet) 1 Each Tablet, 1-2 EACH PO Q4HR PRN Prescribed by: PRASHANT VILLEGAS on 09/17/08 114 Hydrocodone/Acetaminophen (Hydrocodone-Acetamn 7.5-325/15) 118 Ml Solution, 15 ML PO Q6H PRN for PAIN-SEVERE (8-10) Prescribed by: MYLENE GUERRERO on 07/12/202219 Hydrocodone/Acetaminophen (Hydrocodone-Acetamin 10-325 mg) 1 Each Tablet, 2 TAB PO Q8H PRN for PAIN-MODERATE (5-7), (Reported) Entered as Reported by: NICK HENDRICKS on 06/14/21 9392 Last Action: New Order Hyoscyamine Sulfate (Levsin-Sl) 0.125 Mg Tab.subl, 0.125 MG SL Q6H PRN for SPASMS Prescribed by: AURORA CEVALLOS on 06/13/21 170 Indomethacin (Indomethacin) 50 Mg Capsule, 50 MG PO TID, (Reported) Entered as Reported by: NICK HENDRICKS on 06/14/21549 Last Action: New Order Metronidazole (Metronidazole) 500 Mg Tablet, 1 EACH PO QID Prescribed by: PRASHANT VILLEGAS on 09/17/08 1145 Omeprazole (Omeprazole) 20 Mg Capsule.dr, 20 MG PO BID, (Reported) Entered as Reported by: NICK HENDRICKS on 06/14/21549 Last Action: New Order Prochlorperazine Maleate (Prochlorperazine Maleate) 10 Mg Tablet, 10 MG PO TID, (Reported) Entered as Reported by: NICK HENDRICKS on 06/14/21549 Last Action: New Order Propranolol HCl (Propranolol HCl ER) 60 Mg Cap.sa.24h, 60 MG PO DAILY, (Reported) Entered as Reported by: NICK HENDRICKS on 06/14/21549 Last Action: New Order Rizatriptan Benzoate (Rizatriptan) 10 Mg Tab.rapdis, 10 MG PO UD, (Reported) Entered as Reported by: NICK HENDRICKS on 06/14/21549 Last Action: New Order Scopolamine (Transderm-Scop) 1 Each Patch.td72, 1 MG TD UD, (Reported) Entered as Reported by: NICK HENDRICKS on 06/14/21549 Last Action: New Order Tizanidine HCl (Tizanidine HCl) 4 Mg Tablet, 4 MG PO HS, (Reported) Entered as Reported by: NICK HENDRICKS on 06/14/21549 Last Action: New Order Tramadol HCl (Tramadol HCl) 50 Mg Tablet, 1-2 TAB PO Q6 PRN for PAIN-MODERATE (5-7), (Reported) Entered as Reported by: NICK HENDRICKS on 06/14/21549 Last Action: New Order Ubrogepant (Ubrelvy) 100 Mg Tablet, 100 MG PO DAILY PRN for HEADACHE, (Reported) Entered as Reported by: NICK HENDRICKS on 4/3/22 0550 Last Action: New Order Zolpidem Tartrate (Ambien) 10 Mg Tablet, 10 MG PO HS PRN for INSOMNIA, (Reported) Entered as Reported by: NICK HENDRICKS on 06/14/2150 Last Action: New Order Review of Systems Review of Systems Constitutional: No chills, No diaphoresis EENTM: No Blurred Vision, No Double Vision Respiratory: Denies Cough, Denies Orthopnea, Denies Shortness of Air Cardiovascular: Denies Chest Pain, Denies Lightheadedness Gastrointestinal: See HPI, Abdominal Pain; Denies Constipated; Diarrhea, Nausea, Poor Fluid Intake, Vomiting Genitourinary: Denies Burning, Denies Discharge Musculoskeletal: No back pain, No joint pain Skin: No change in color, No dryness, No pruritus, No rash Psychiatric/Neurological: Denies Headache, Denies Numbness All Other Systems Reviewed Negative Unless Noted: Yes Past Iucgtbg-Bebbho-Kitxss Hx Patient Social History Tobacco Use?: No Use of E-Cig and/or Vaping dev: No Substance use?: No Alcohol Use?: No Immunizations Up To Date First/Initial COVID19 Vaccinat: 2020 Second COVID19 Vaccination Roberto: 2020 Third COVID19 Vaccination Date: 2020 Seasonal Allergies Seasonal Allergies: No Past Medical History Surgery/Hospitalization HX: kidney stone removal, ataxia Surgeries: Yes (ureter stent+removal) Respiratory: No Cardiac: Yes High Cholesterol, Hypertension Neurological: Yes (Ataxia--follows with at ) Genitourinary: Yes Kidney Stones Gastrointestinal: No Musculoskeletal: No Endocrine: No HEENT: No Cancer: No Psychosocial: No Integumentary: No Blood Disorders: No Physical Exam Vital Signs Vital Signs - First Documented 06/14/21 01:19 Temp 37.2 Pulse 95 Resp 20 B/P (MAP) 167/59 (95) Pulse Ox 99 O2 Delivery Room Air Capillary Refill : Less Than 3 Seconds Height/Weight/BMI Height: '" Weight: lbs. oz. kg; 32.00 BMI Method: General Appearance: WD/WN, no apparent distress HEENT: PERRL/EOMI, pharynx normal Neck: full range of motion, supple, normal inspection Respiratory: lungs clear, normal breath sounds, no respiratory distress, no accessory muscle use Cardiovascular: normal peripheral pulses, regular rate, rhythm Peripheral Pulses: 2+ Radial Pulses (R), 2+ Radial Pulses (L) Gastrointestinal: normal bowel sounds, soft, no organomegaly Extremities: normal range of motion, non-tender, normal inspection, normal capillary refill Neurologic/Psychiatric: alert, normal mood/affect, oriented x 3 Skin: normal color, warm/dry Progress/Results/Core Measures Results/Orders Lab Results Laboratory Tests Test 06/14/21 00:18 06/14/21 03:15 Range/Units White Blood Count 8.9 4.3-11.0 10^3/uL Red Blood Count 4.60 4.30-5.52 10^6/uL Hemoglobin 14.5 13.3-17.7 g/dL Hematocrit 42 40-54 % Mean Corpuscular Volume 92 80-99 fL Mean Corpuscular Hemoglobin 32 25-34 pg Mean Corpuscular Hemoglobin Concent 34 32-36 g/dL Red Cell Distribution Width 13.0 10.0-14.5 % Platelet Count 416 H 130-400 10^3/uL Mean Platelet Volume 9.4 9.0-12.2 fL Immature Granulocyte % (Auto) 0 % Neutrophils (%) (Auto) 70 42-75 % Lymphocytes (%) (Auto) 17 12-44 % Monocytes (%) (Auto) 11 0-12 % Eosinophils (%) (Auto) 2 0-10 % Basophils (%) (Auto) 0 0-10 % Neutrophils # (Auto) 6.2 1.8-7.8 10^3/uL Lymphocytes # (Auto) 1.5 1.0-4.0 10^3/uL Monocytes # (Auto) 1.0 0.0-1.0 10^3/uL Eosinophils # (Auto) 0.2 0.0-0.3 10^3/uL Basophils # (Auto) 0.0 0.0-0.1 10^3/uL Immature Granulocyte # (Auto) 0.0 0.0-0.1 10^3/uL Sodium Level 140 135-145 MMOL/L Potassium Level 3.7 3.6-5.0 MMOL/L Chloride Level 105 98-107 MMOL/L Carbon Dioxide Level 20 L 21-32 MMOL/L Anion Gap 15 H 5-14 MMOL/L Blood Urea Nitrogen 8 7-18 MG/DL Creatinine 1.12 0.60-1.30 MG/DL Estimat Glomerular Filtration Rate 78 BUN/Creatinine Ratio 7 Glucose Level 120 H 70-105 MG/DL Calcium Level 8.7 8.5-10.1 MG/DL Corrected Calcium 8.9 8.5-10.1 MG/DL Total Bilirubin 0.4 0.1-1.0 MG/DL Aspartate Amino Transf (AST/SGOT) 17 5-34 U/L Alanine Aminotransferase (ALT/SGPT) 15 0-55 U/L Alkaline Phosphatase 64 40-136 U/L C-Reactive Protein High Sensitivity 1.01 H 0.00-0.50 MG/DL Total Protein 6.4 6.4-8.2 GM/DL Albumin 3.8 3.2-4.5 GM/DL Lipase 76 8-78 U/L Urine Color YELLOW Urine Clarity CLEAR Urine pH 7.5 5-9 Urine Specific [place] 1.015 L 1.016-1.022 Urine Protein NEGATIVE NEGATIVE Urine Glucose (UA) NEGATIVE NEGATIVE Urine Ketones NEGATIVE NEGATIVE Urine Nitrite NEGATIVE NEGATIVE Urine Bilirubin NEGATIVE NEGATIVE Urine Urobilinogen 0.2 < = 1.0 MG/DL Urine Leukocyte Esterase NEGATIVE NEGATIVE Urine RBC (Auto) TRACE-I H NEGATIVE Urine RBC 0-2 /HPF Urine WBC NONE /HPF Urine Squamous Epithelial Cells RARE /HPF Urine Crystals NONE /LPF Urine Bacteria NEGATIVE /HPF Urine Casts NONE /LPF Urine Mucus NEGATIVE /LPF Urine Culture Indicated NO My Orders Orders - SANFORD VARGAS Ed Iv/Invasive Line Start (06/14/21 01:25) Ns Iv 1000 Ml (Sodium Chloride 0.9%) (06/14/21 01:30) Ondansetron Injection (Zofran Injectio (06/14/21 01:30) Cbc With Automated Diff (06/14/21 01:27) Comprehensive Metabolic Panel (06/14/21 01:27) Hs C Reactive Protein (06/14/21 01:27) Ua Culture If Indicated (06/14/21 01:27) Morphine Injection (Morphine Injection (06/14/21 01:36) Lipase (06/14/21 00:18) Medications Given in ED Current Medications Medications Dose Ordered Sig/Breann Route Start Time Stop Time Status Last Admin Dose Admin Ondansetron HCl 8 mg ONCE ONCE IVP 06/14/21 01:30 06/14/21 01:31 DC 06/14/21 01:35 8 MG Vital Signs/I&O 06/14/21 01:19 Temp 37.2 Pulse 95 Resp 20 B/P (MAP) 167/59 (95) Pulse Ox 99 O2 Delivery Room Air Blood Pressure Mean: 95 Progress Progress Note : Time: 01:32 Progress Note Does not appear that he is tolerating outpatient therapy for his probable pancreatitis maybe gastroenteritis. Will trial some fluids and Zofran if we can get him feeling better we will suggest he do an observation stay for intractable nausea and vomiting. Departure Communication (Admissions) Time/Spoke to Admitting Phy: 03:[address] Tse who agrees to observe the patient for some fluids nausea medicine and pain medicine. Impression Primary Impression: Intractable nausea and vomiting Additional Impressions: Abdominal pain Qualified Codes: R10.13 - Epigastric pain Pancreatitis Qualified Codes: K85.90 - Acute pancreatitis without necrosis or infection, unspecified Disposition: ADMITTED INPATIENT Condition: Stable Admissions Decision to Admit Reason: Admit from ER (General) Decision to Admit/Date: Jun 14, 2021 Time/Decision to Admit Time: 03:00 Departure-Patient Inst. Referrals: TAL CALIX MD (PCP/Family) Primary Care Physician SANFORD VARGAS Jun 14, 2021 01:33
[2021-06-14] MEDS ORDERED: morphine INJ 10 MG/ML 1ML (SYR OR VIAL) IVP STA ×2 (01:36→03:48)
[2021-06-14 01:37] LABS: ALBUMIN 3.8 GM/DL (3.2-4.5); POTASSIUM 3.7 MMOL/L (3.6-5.0)
[2021-06-14 01:39] LABS: CALCIUM 8.7 MG/DL (8.5-10.1)
[2021-06-14 01:40] LABS: TOTAL PROTEIN 6.4 GM/DL (6.4-8.2)
[2021-06-14 01:42] LABS: BILIRUBIN,TOTAL 0.4 MG/DL (0.1-1.0)
[2021-06-14 01:43] LABS: CREATININE SERUM 1.12 MG/DL (0.60-1.30)
[2021-06-14 03:20] LABS: BILIRUBIN,URINE NEGATIVE (NEGATIVE); CLARITY,URINE CLEAR; COLOR,URINE YELLOW; GLUCOSE, URINE (UA) NEGATIVE (NEGATIVE); KETONES,URINE NEGATIVE (NEGATIVE); LEUKOCYTE ESTERASE ,URINE NEGATIVE (NEGATIVE); NITRITE,URINE NEGATIVE (NEGATIVE); PH,URINE 7.5 (5-9); PROTEIN,URINE NEGATIVE (NEGATIVE)
[2021-06-14 03:25] LABS: BACTERIA,URINE NEGATIVE /HPF; RBC,URINE 0-2 /HPF; SQUAMOUS EPITHELIAL CELL,UR RARE /HPF
[2021-06-14] MEDS ORDERED: hydrALAZINE (APESOLINE) 20 MG/ML VIAL IV ONE (04:00)
[2021-06-14] MEDS ORDERED: PROMETHAZINE INJ 25 MG/ML (PHENERGAN) AMP IVP PRN (05:45)
[2021-06-14] MEDS ORDERED: diphenhydrAMINE 50 MG/ML INJ (BENADRYL) IV PRN (05:45)
[2021-06-14] MEDS ORDERED: fentaNYL INJ 100 MCG/2 ML AMP IV PRN (05:45)
[2021-06-14] MEDS ORDERED: methylPREDNISolone 125 MG (Solu-MEDROL) VIAL IV PRN (05:45)
[2021-06-14] MEDS ORDERED: ONDANSETRON 4 MG/2 ML (SDV) Z0FRAN IV PRN (05:45)
[2021-06-14] MEDS ORDERED: morphine INJ 4 MG/ML 1 ML (VIAL/SYRINGE) IV PRN (05:45)
[2021-06-14] MEDS ORDERED: PROP60CA PO (05:50)
[2021-06-14] MEDS ORDERED: UBRO100T PO (05:50)
[2021-06-14] MEDS ORDERED: BENA-3 PO (05:50)
[2021-06-14] MEDS ORDERED: RIZA10TA94 PO (05:50)
[2021-06-14] MEDS ORDERED: FEXO1TAB97 PO (05:50)
[2021-06-14] MEDS ORDERED: CHLO25TA22 PO (05:50)
[2021-06-14] MEDS ORDERED: TRAM50TA3 PO (05:50)
[2021-06-14] MEDS ORDERED: SCOP1PAT10 TD (05:50)
[2021-06-14] MEDS ORDERED: HYDR-3820 PO (05:50)
[2021-06-14] MEDS ORDERED: OMEP20CA18 PO (05:50)
[2021-06-14] MEDS ORDERED: PROC10TA10 PO (05:50)
[2021-06-14] MEDS ORDERED: TIZA-186 PO (05:50)
[2021-06-14] MEDS ORDERED: INDO50CA82 PO (05:50)
[2021-06-14] MEDS ORDERED: DIAZ5TAB49 PO (05:50)
[2021-06-14] MEDS ORDERED: ZOLP10TA PO (05:50)
[2021-06-14 06:00] VITALS: BP 159/82
[2021-06-14] MEDS: 1/2 NS W/KCL 20 MEQ/L 1,000 ML IV SCH ×2 (06:02→12:34)
[2021-06-14 07:09] VITALS: BP 161/76
[2021-06-14 11:27] VITALS: BP 165/88
[2021-06-14] MEDS ORDERED: oxyCODONE/APAP 5/325MG (PERCOCET 5) TABLET PO PRN (12:30)
[2021-06-14 14:31] VITALS: BP 165/88
[2021-06-14] MEDS ORDERED: ONDA4TAB11 PO (14:32)
--- NOTE | 2021-06-14 16:16 | Discharge Summary ---
Discharge Summary Hospital Course Problems/Dx: (1) Pancreatitis Qualifiers: Qualified Codes: K85.90 - Acute pancreatitis without necrosis or infection, unspecified Hospital Course Date of Admission: Jun 14, 2021 at 03:35 Admission Diagnosis : Pancreatitis Family Physician/Provider: Tal Rivera MD Date of Discharge: 06/14/21 Discharge Diagnosis: Pancreatitis Hospital Course: Rigo Mares is a 56 year old male who was admitted with pancreatitis. He was having nausea and vomiting. He also had abdominal pain. He was seen in the ER and discharged home but had persistent nausea and vomiting and returned. He was found to have mild pancreatitis on CT abdomen. He had no elevation of his lipase. He was treated with IV fluids and clear liquid diet. He tolerated clears and his diet was advanced. He tolerated this without issue. He requested to be discharged home as he felt his symptoms had become more manageable. He was discharged home in improved condition. He should follow up with his PCP in about a week or two. Labs and Pending Lab Test: Laboratory Tests 06/14/21 00:18: White Blood Count 8.9, Red Blood Count 4.60, Hemoglobin 14.5, Hematocrit 42, Mean Corpuscular Volume 92, Mean Corpuscular Hemoglobin 32, Mean Corpuscular Hemoglobin Concent 34, Red Cell Distribution Width 13.0, Platelet Count 416H, Mean Platelet Volume 9.4, Immature Granulocyte % (Auto) 0, Neutrophils (%) (Auto) 70, Lymphocytes (%) (Auto) 17, Monocytes (%) (Auto) 11, Eosinophils (%) (Auto) 2, Basophils (%) (Auto) 0, Neutrophils # (Auto) 6.2, Lymphocytes # (Auto) 1.5, Monocytes # (Auto) 1.0, Eosinophils # (Auto) 0.2, Basophils # (Auto) 0.0, Immature Granulocyte # (Auto) 0.0, Sodium Level 140, Potassium Level 3.7, Chloride Level 105, Carbon Dioxide Level 20L, Anion Gap 15H, Blood Urea Nitrogen 8, Creatinine 1.12, Estimat Glomerular Filtration Rate 78, BUN/Creatinine Ratio 7, Glucose Level 120H, Calcium Level 8.7, Corrected Calcium 8.9, Total Bilirubin 0.4, Aspartate Amino Transf (AST/SGOT) 17, Alanine Aminotransferase (ALT/SGPT) 15, Alkaline Phosphatase 64, C-Reactive Protein High Sensitivity 1.01H, Total Protein 6.4, Albumin 3.8, Lipase 76 06/14/21 03:15: Urine Color YELLOW, Urine Clarity CLEAR, Urine pH 7.5, Urine Specific [place] 1.015L, Urine Protein NEGATIVE, Urine Glucose (UA) NEGATIVE, Urine Ketones NEGATIVE, Urine Nitrite NEGATIVE, Urine Bilirubin NEGATIVE, Urine Urobilinogen 0.2, Urine Leukocyte Esterase NEGATIVE, Urine RBC (Auto) TRACE-IH, Urine RBC 0- 2, Urine WBC NONE, Urine Squamous Epithelial Cells RARE, Urine Crystals NONE, Urine Bacteria NEGATIVE, Urine Casts NONE, Urine Mucus NEGATIVE, Urine Culture Indicated NO Home Meds Active Ondansetron Odt (Ondansetron) 4 Mg Tab.rapdis 4 Mg PO Q4H PRN 7 Days Reported Ambien (Zolpidem Tartrate) 10 Mg Tablet 10 Mg PO HS PRN Tramadol HCl 50 Mg Tablet 1-2 Tab PO Q6 PRN Tizanidine HCl 4 Mg Tablet 4 Mg PO HS Omeprazole 20 Mg Capsule.dr 20 Mg PO BID Hydrocodone-Acetamin 10-325 mg (Hydrocodone/Acetaminophen) 1 Each Tablet 2 Tab PO Q8H PRN Fexofenadine-Pse ER 180-240 Tb (Fexofenadine/Pseudoephedrine) 1 Each Tab.er.24h 1 Each PO DAILY Diazepam 5 Mg Tablet 5 Mg PO DAILY PRN Chlorthalidone 25 Mg Tablet 25 Mg PO DAILY Benazepril HCl 20 Mg Tablet 20 Mg PO DAILY Prochlorperazine Maleate 10 Mg Tablet 10 Mg PO TID Indomethacin 50 Mg Capsule 50 Mg PO TID Rizatriptan (Rizatriptan Benzoate) 10 Mg Tab.rapdis 10 Mg PO UD TAKE FOR SEVERE MIGRAINE. DOSE COULD BE REPEATED IN 2 HOURS IF NO RELIEF. MAX 2 TABLETS PER DAY. Propranolol HCl ER (Propranolol HCl) 60 Mg Cap.sa.24h 60 Mg PO DAILY Ubrelvy (Ubrogepant) 100 Mg Tablet 100 Mg PO DAILY PRN MAY REPEAT ONCE AFTER 2 HOURS BASED ON RESPONSE Transderm-Scop (Scopolamine) 1 Each Patch.td72 1 Mg TD UD APPLY 1 PATCH TO TOP OF SKIN DIRECTED EVERY 72 HOURS Zyloprim (Allopurinol) 300 Mg Tablet 300 Mg PO DAILY Lipitor 80MG (Atorvastatin Calcium) 80 Mg Tablet 80 Mg PO HS Assessment/Pt Instructions See instructions Discharge Planning: <30 minutes discharge planning Discharge Instructions Discharge Diet: No Restrictions Activity as Tolerated: Yes Discharge Physical Examination Vital Signs Vital Signs Date Time Temp Pulse Resp B/P (MAP) Pulse Ox O2 Delivery O2 Flow Rate FiO2 06/14/21 14:31 37.3 93 22 165/88 97 Room Air General Appearance: No Apparent Distress, Chronically ill, Obese HEENT: PERRL/EOMI, Pharynx Normal Respiratory: Lungs Clear, No Respiratory Distress Cardiovascular: Regular Rate, Rhythm, No Murmur Gastrointestinal: Normal Bowel Sounds, Soft, Tenderness Extremity: Normal Inspection, No Pedal Edema Skin: Normal Color, Warm/Dry Neurologic/Psychiatric: Alert, Normal Mood/Affect Allergies: Coded Allergies: NKANo Known Allergies (Unverified Allergy, Mild, 09/17/08) Copy Copies To 1: TAL RIVERA MD Discharge Summary Date of Admission Jun 14, 2021 at 03:35 Date of Discharge Jun 14, 2021 at 14:40 Discharge Date: Jun 14, 2021 Discharge Time: 14:40 Admission Diagnosis Pancreatitis Discharge Diagnosis (1) Pancreatitis Qualifiers: Qualified Codes: K85.90 - Acute pancreatitis without necrosis or infection, unspecified NIDHI GILL MD Jun 14, 2021 16:16
== END 2021-06-14 14:40 | disposition home or self-care (01) ==
LOC: EDUNIT# 01:10 → ER 01:11 → 4TH 03:35
PROVIDERS: ADMIT Internal Medicine; ATTEND Internal Medicine
DX: K85.90 Acute pancreatitis without necrosis or infection, unspecified (principal)
CPT/HCPCS: 80053; 81000; 83690; 85025; 86141; 96374; 96375; 99284; G0378; 36415; 96361; 96376

== ENCOUNTER 2021-06-17 00:39 | Emergency (ER) | payer BC ==
[~2021-06-17] VITALS: Ht 185 cm; Wt 115.0 kg
[~2021-06-17 00:39] MED LIST changes: +BENA-3 PO; +CHLO25TA22 PO; +DIAZ5TAB49 PO; +FEXO1TAB97 PO; +HYDR-3820 PO; +INDO50CA82 PO; +OMEP20CA18 PO; +ONDA4TAB11 PO; +PROC10TA10 PO; +PROP60CA PO; +RIZA10TA94 PO; +SCOP1PAT10 TD; +TIZA-186 PO; +TRAM50TA3 PO; +UBRO100T PO; +ZOLP10TA PO
[2021-06-17 01:46] LABS: BILIRUBIN,URINE NEGATIVE (NEGATIVE); CLARITY,URINE CLEAR; COLOR,URINE YELLOW; GLUCOSE, URINE (UA) NEGATIVE (NEGATIVE); KETONES,URINE NEGATIVE (NEGATIVE); LEUKOCYTE ESTERASE ,URINE NEGATIVE (NEGATIVE); NITRITE,URINE NEGATIVE (NEGATIVE); PROTEIN,URINE NEGATIVE (NEGATIVE)
[2021-06-17 01:50] LABS: BASOPHILS % (AUTO) 0 % (0-10); EOSINOPHILS # (AUTO) 0.4 10^3/uL (0.0-0.3); EOSINOPHILS % (AUTO) 4 % (0-10); HEMATOCRIT 43 % (40-54); HEMOGLOBIN 14.5 g/dL (13.3-17.7); LYMPHOCYTES # (AUTO) 1.5 10^3/uL (1.0-4.0); LYMPHOCYTES % (AUTO) 15 % (12-44); MEAN CORPUSCULAR HEMOGLOBIN 32 pg (25-34); MEAN CORPUSCULAR HGB CONC 34 g/dL (32-36); MEAN CORPUSCULAR VOLUME 93 fL (80-99); MEAN PLATELET VOLUME 9.4 fL (9.0-12.2); MONOCYTES # (AUTO) 0.8 10^3/uL (0.0-1.0); MONOCYTES % (AUTO) 8 % (0-12); NEUTROPHILS # (AUTO) 7.1 10^3/uL (1.8-7.8); NEUTROPHILS % (AUTO) 73 % (42-75); PLATELET COUNT 432 10^3/uL (130-400); WHITE BLOOD COUNT 9.8 10^3/uL (4.3-11.0)
[2021-06-17 01:57] LABS: ALBUMIN 4.2 GM/DL (3.2-4.5); CHLORIDE 101 MMOL/L (98-107); POTASSIUM 4.1 MMOL/L (3.6-5.0); SODIUM 138 MMOL/L (135-145)
[2021-06-17 01:58] LABS: AMYLASE 117 U/L (25-125); CALCIUM 9.2 MG/DL (8.5-10.1)
[2021-06-17 01:59] LABS: GLUCOSE 104 MG/DL (70-105); TOTAL PROTEIN 7.3 GM/DL (6.4-8.2)
[2021-06-17 02:00] LABS: CARBON DIOXIDE 22 MMOL/L (21-32)
[2021-06-17 02:01] LABS: AMPHETAMINE SCREEN, URINE NEGATIVE (NEGATIVE); BARBITURATE SCREEN URINE NEGATIVE (NEGATIVE); BENZODIAZEPINES SCREEN URINE POSITIVE (NEGATIVE); BILIRUBIN,TOTAL 0.5 MG/DL (0.1-1.0); CANNABINOID SCREEN, URINE NEGATIVE (NEGATIVE); COCAINE SCREEN URINE NEGATIVE (NEGATIVE); METHADONE STAT NEGATIVE (NEGATIVE); METHAMPHETAMINE SCREEN URINE S NEGATIVE (NEGATIVE); OPIATE SCREEN URINE POSITIVE (NEGATIVE); OXYCODONE STAT NEGATIVE (NEGATIVE); PROPOXYPHENE STAT NEGATIVE (NEGATIVE); TRICYCLIC ANTIDEPRESSANTS SCRE NEGATIVE (NEGATIVE)
[2021-06-17 02:02] LABS: BACTERIA,URINE NEGATIVE /HPF; SQUAMOUS EPITHELIAL CELL,UR RARE /HPF
[2021-06-17 02:03] LABS: ALKALINE PHOSPHATASE 63 U/L (40-136); CREATININE SERUM 1.17 MG/DL (0.60-1.30); GFR ESTIMATED 74
[2021-06-17 02:04] LABS: BUN/CREATININE RATIO 10
[2021-06-17] MEDS ORDERED: KETOROLAC 30 MG/ML VIAL IVP STA (02:04)
[2021-06-17 02:06] LABS: ALANINE AMINOTRANSFERASE 14 U/L (0-55)
[2021-06-17 02:07] LABS: LIPASE 42 U/L (8-78)
[2021-06-17] MEDS ORDERED: ONDANSETRON 4 MG/2 ML (SDV) Z0FRAN IVP ONE (02:15)
[2021-06-17] MEDS ORDERED: PROM25SU44 RC (04:16)
[2021-06-17] MEDS ORDERED: DICY20TA PO (04:16)
[2021-06-17] MEDS ORDERED: HYOS0.1283 SL (04:16)
[2021-06-17] MEDS ORDERED: PANT40TA2 PO (04:16)
[2021-06-17] MEDS ORDERED: ONDA8TAB13 PO (04:16)
[2021-06-17 04:20] VITALS: BP 136/74
--- NOTE | 2021-06-17 06:49 | Diagnostic Imaging Report ---
EXAMINATION: CT abdomen and pelvis without contrast. TECHNIQUE: Multiple contiguous axial images were obtained through the abdomen and pelvis without the use of intravenous contrast. All CT scans use one or more of the following dose optimizing techniques: automated exposure control, MA and/or KvP adjustment based on patient size and exam type or iterative reconstruction. HISTORY: Flank pain. COMPARISON: 06/13/2021 FINDINGS: Limited views of the lower thorax are unremarkable. The liver is normal without focal lesion. There is no biliary ductal dilation. Gallbladder is normal. Pancreas is normal. Spleen is normal. Adrenal glands are normal. The kidneys are normal. There is no hydronephrosis. Urinary bladder is normal. There are no renal or ureteral stones. There is a small fat-containing right inguinal hernia. Bowel is normal in caliber without obstruction or inflammation. There is diverticulosis without diverticulitis. No free fluid or air. No abdominal or pelvic lymphadenopathy. Aorta is normal in caliber without aneurysm. There are no suspicious osseous lesions. IMPRESSION: 1. No renal or ureteral stones. There is no significant disagreement with the preliminary report. Dictated by: Dictated on workstation # [id number]
== END 2021-06-17 04:22 | disposition home or self-care (01) ==
LOC: EDUNIT# 00:39 → ER 00:43
DX: M54.9 Dorsalgia, unspecified (principal)
CPT/HCPCS: 74176; 80053; 80306; 81000; 82150; 83690; 83735; 85025; 93041; 99284; G0480; 36415; 80320

== ENCOUNTER → 2021-10-14 | Outpatient (CLI) | payer BC ==
[~2021-10-14] VITALS: Ht 183 cm; Wt 114.0 kg
[~2021-10-14] MED LIST changes: +DICY20TA PO; +ONDA8TAB13 PO; +PANT40TA2 PO; +PROM25SU44 RC
== END | disposition home or self-care (01) ==
LOC: PREOP 05:37
PROVIDERS: ATTEND Internal Medicine
DX: Z01.818 Encounter for other preprocedural examination (principal)

== ENCOUNTER 2021-10-23 07:33 | Day surgery (SDC) | payer BC ==
[~2021-10-23] VITALS: Ht 183 cm; Wt 114.0 kg
[2021-10-23] MEDS ORDERED: LACTATED RINGERS 1,000 ML IV STA (07:41)
[2021-10-23 07:50] VITALS: BP 147/111
--- NOTE | 2021-10-23 08:29 | Pre-Op Note & Conscious Sedat ---
Pre-Operative Progress Note Date H&P Reviewed: Oct 23, 2021 Time H&P Reviewed: 08:29 History & Physical: H&P Reviewed, Patient Examed, No changes noted Pre-Op Diagnosis: screening Conscious Sedation Pre-Proced ASA Score 2 For ASA 3 and 4: Consider anesthesia and medical clearance. Also, for patients with a history of failed moderate sedation consider anesthesia. Airway Lungs Heart ASA score ASA 1: a normal healthy patient ASA 2: a patient with a mild systemic disease (mid diabetes, controlled hypertension, obesity ASA 3: a patient with a severe systemic disease that limits activity (angina, COPD, prior Myocardial infarction) ASA 4: a patient with an incapacitating disease that is a constant threat to life (CHF, renal failure) ASA 5: a moribund patient not expected to survive 24 hrs. (ruptured aneurysm) ASA 6: a declared brain- patient whose organs are being harvested. For emergent operations, add the letter E after the classification Mallampati Classification Grade 2 Sedation Plan Analgesia, Amnesia, Plan communicated to team members, Discussed options with patient/fam, Discussed risks with patient/fam The patient is an appropriate candidate to undergo the planned procedure, sedation, and anesthesia. The patient immediately re-assessed prior to indication. TAL RIVERA MD Oct 23, 2021 08:29
[2021-10-23] MEDS ORDERED: MIDAZOLAM 2 MG/2 ML (VERSED) VIAL ONE (09:04)
[2021-10-23] MEDS ORDERED: PROPOFOL INJECTION 50 ML IV ONE (09:04)
[2021-10-23] MEDS ORDERED: fentaNYL INJ 100 MCG/2 ML AMP ONE (09:04)
[2021-10-23 09:30] VITALS: BP 169/92
[2021-10-23 09:35] VITALS: BP 154/79
--- NOTE | 2021-10-23 09:35 | Progress Note-Post Operative ---
Post-Procedure Note Physician (s)/[employer] (s) Physician TAL RIVERA MD Pre-Procedure Diagnosis Pre-Procedure Diagnosis: screening Post-Procedure Diagnosis Post-operative diagnosis: one polyp removed by hot forcepts mid-transverse colon otherwise normal. TAL RIVERA MD Oct 23, 2021 09:35
[2021-10-23 09:37] VITALS: BP 154/79
[2021-10-23 10:00] VITALS: BP 154/79
--- NOTE | 2021-10-23 13:04 | Anesthesia-General Post-Op ---
MAC Patient Condition Mental Status/LOC: Same as Preop Cardiovascular: Satisfactory Nausea/Vomiting: Absent Respiratory: Satisfactory Pain: Controlled Complications: Absent Post Op Complications Complications None Follow Up Care/Instructions Patient Instructions None needed. Anesthesiology Discharge Order Discharge Order Patient is doing well, no complaints, stable vital signs, no apparent adverse anesthesia problems. No complications reported per nursing. ASAEL GUAJARDO CRNA Oct 23, 2021 13:04
--- NOTE | 2021-10-23 17:26 | OPERATIVE REPORT ---
DATE OF SERVICE: COLONOSCOPY SUMMARY DESCRIPTION OF PROCEDURE: The patient was placed in the left lateral decubitus position. Prior to undergoing colonoscopy, digital rectal evaluation was performed. Anal sphincter tone was normal and the perianal reflexes intact. Prostate is normal in size and anodular on digital inspection. No abnormalities were noted on digital inspection of anal canal or distal rectal vault. The colonoscope was then inserted into the rectum and then under direct visualization advanced to cecum. The cecum was identified by identification of ileocecal valve and cecal strap. Photographic documentation was obtained. Careful inspection was made as colonoscope withdrawn. The patient tolerated the procedure well. The quality of prep was good. FINDINGS: There was no evidence for internal or external hemorrhoids. Several small sigmoid diverticulum were present. There were also some medium size diverticulum noted in the distal transverse colon and several in ascending colon. One 5 mm sessile adenomatous appearing polyp was noted in the mid transverse colon, was biopsied and ablated and sent to histopathology with no blood loss. No other abnormalities were noted under good prep conditions to the cecum. ASSESSMENT: One 5 mm sessile polyp was removed via hot forceps from the mid transverse colon with no other evidence for neoplasia. Mild diverticular disease noted in the sigmoid colon as well as several moderate sized diverticula in the transverse colon and ascending colon were noted without evidence for diverticulitis. No other abnormalities were noted with normal prostate examination to digital inspection. Consideration for repeat surveillance colonoscopy in 10 years as long as there is no surprise on histopathology. Job ID: [id number] DocumentID: [id number] Dictated Date: 10/23/2021 09:40:25 [employer] Date: 10/23/2021 17:25:51 Dictated By: TAL RIVERA MD [facility]
== END 2021-10-23 10:06 | disposition home or self-care (01) ==
LOC: ENDO 07:33
PROVIDERS: ATTEND Internal Medicine
DX: K63.5 Polyp of colon (principal); K57.30 Diverticulosis of large intestine without perforation or abscess without bleeding; E66.9 Obesity, unspecified; Z68.34 Body mass index [BMI] 34.0-34.9, adult
CPT/HCPCS: 88305